=== PATIENT | female | born 1950 | race Two or more races ===

== ENCOUNTER 2022-08-17 12:11 | Inpatient (IN) | payer BC, OTHER ==
[~2022-08-17] VITALS: Ht 154.9 cm; Wt 72.5 kg
[2022-08-17] MEDS ORDERED: ONDANSETRON ODT 4 MG TAB PO ONE (13:15)
[2022-08-17] MEDS ORDERED: HYDROcodone-ACET 5/325MG TAB PO ONE (13:15)
[2022-08-17 13:25] LABS: Basophils # (auto) 0 10 ^3/uL (0-0.2); Basophils % (auto) 0.9 % (0.0-2.0); Eosinophils # (auto) 0 10 ^3/uL (0-0.8); Eosinophils % (auto) 0.1 % (0.0-7.0); Hemoglobin 12.8 g/dL (12.2-16.2); Lymphocytes # (auto) 0.9 10 ^3/uL (0.4-5.4); Mean Corpuscular Hemoglobin 31.3 pg (28.0-32.0); Mean Corpuscular Hgb Conc. 33.7 g/dL (32.0-36.0); Mean Corpuscular Volume 92.6 fL (80.0-100.0); Monocytes # (auto) 0.1 10 ^3/uL (0-1.3); Neutrophils # (auto) 4.3 10 ^3/uL (1.6-8.6); Red Blood Cells 4.11 10^6/uL (4.0-5.20); Red Cell Distribution Width 14.7 % (11.8-14.3); White Blood Cell 5.4 10^3/uL (4.4-10.8)
[2022-08-17 13:46] LABS: Albumin 3.6 g/dL (3.4-5.0); BUN/Creatinine Ratio 17.9; Calcium 11.4 mg/dL (8.5-10.1); Potassium 3.1 mmol/L (3.5-5.1)
[2022-08-17 13:48] LABS: Bilirubin, Total 0.8 mg/dL (0.2-1.0); Total Protein 7.1 g/dL (6.4-8.2)
[2022-08-17 14:27] LABS: INR 0.99 (0.9-1.15); Partial Thromboplastin Time 21.8 sec (24.6-33.4)
[2022-08-17] MEDS ORDERED: SODIUM CHLORIDE 0.9% 1,000 ML IV ONE (15:00)
[2022-08-17] MEDS ORDERED: POTASSIUM CHL 20 Meq TABLET PO ONE ×2 (15:00→19:30)
[2022-08-17] MEDS ORDERED: MORPHINE SULFATE INJ 2 MG/ml SYRG IV PRN (19:00)
[2022-08-17] MEDS ORDERED: NITROGLYCERIN 0.4 MG SL TAB SL PRN (19:00)
[2022-08-17] MEDS ORDERED: ONDANSETRON HCL 4 MG/2 ML VIAL IV PRN (19:00)
[2022-08-17] MEDS ORDERED: PANTOPRAZOLE 40 MG/10 ML VIAL INJ IV ONE (19:00)
[2022-08-17] MEDS ORDERED: methylPREDNISolone SOD SUCC 125 MG/2 ML VL IV ONE (19:30)
[2022-08-17] MEDS: SODIUM CHLORIDE 0.9% 1,000 ML IV SCH (21:01)
[2022-08-17 21:32] LABS: Cholesterol 232 mg/dL (< 200)
[2022-08-17 21:34] LABS: HDL Cholesterol 76 mg/dL (40-59); LDL Cholesterol 130 mg/dL (< 100); Triglycerides 225 mg/dL (< 150)
[2022-08-18] MEDS: HYDROcodone-ACET 5/325MG TAB PO PRN ×3 (00:24→12:46)
[2022-08-18] MEDS: SODIUM CHLORIDE 0.9% 1,000 ML IV SCH ×2 (01:55→22:25)
[2022-08-18] MEDS ORDERED: PRED10TA PO (02:21)
[2022-08-18] MEDS ORDERED: FOLI1TAB6 PO (02:21)
[2022-08-18] MEDS ORDERED: LEFL20TA PO (02:21)
[2022-08-18] MEDS ORDERED: DICL1GEL50 TD (02:21)
[2022-08-18] MEDS ORDERED: HYDR25TA4 PO (02:21)
[2022-08-18] MEDS ORDERED: LISI-716 PO (02:21)
[2022-08-18] MEDS ORDERED: METO-289 PO (02:21)
[2022-08-18] MEDS ORDERED: CALCTAB49 PO (02:21)
[2022-08-18] MEDS ORDERED: DOCU100T15 PO (02:21)
[2022-08-18] MEDS ORDERED: ALEN70TA74 PO (02:21)
[2022-08-18] MEDS ORDERED: CHOL20007 OR (02:21)
[2022-08-18] MEDS ORDERED: CHOL1CAP59 PO (02:21)
[2022-08-18 03:23] LABS: Urine Bacteria FEW /hpf (None Seen); Urine Blood Negative /uL (Negative); Urine Hyaline Cast FEW /lpf (0 - 2); Urine Mucus FEW (None Seen); Urine Specific Gravity 1.013 (1.001-1.035); Urine WBC 2 /hpf (0 - 5)
[2022-08-18 03:30] VITALS: BP 117/40
[2022-08-18 05:20] VITALS: BP 111/39
[2022-08-18 06:07] LABS: Basophils # (auto) 0 10 ^3/uL (0-0.2); Basophils % (auto) 0.8 % (0.0-2.0); Eosinophils # (auto) 0.1 10 ^3/uL (0-0.8); Eosinophils % (auto) 1.4 % (0.0-7.0); Hematocrit 30.6 % (36.0-46.0); Hemoglobin 10.4 g/dL (12.2-16.2); Lymphocytes # (auto) 1.7 10 ^3/uL (0.4-5.4); Lymphocytes % (auto) 36.5 % (10.0-50.0); Mean Corpuscular Hemoglobin 31.6 pg (28.0-32.0); Mean Corpuscular Hgb Conc. 33.9 g/dL (32.0-36.0); Mean Corpuscular Volume 93.3 fL (80.0-100.0); Monocytes # (auto) 0.2 10 ^3/uL (0-1.3); Monocytes % (auto) 4.9 % (0.0-12.0); Neutrophils # (auto) 2.6 10 ^3/uL (1.6-8.6); Neutrophils % (auto) 56.4 % (37.0-80.0); Red Blood Cells 3.27 10^6/uL (4.0-5.20); Red Cell Distribution Width 14.3 % (11.8-14.3); White Blood Cell 4.5 10^3/uL (4.4-10.8)
[2022-08-18 06:19] LABS: Albumin 2.9 g/dL (3.4-5.0); Calcium 9.7 mg/dL (8.5-10.1)
[2022-08-18 06:23] LABS: BUN/Creatinine Ratio 20.4; Bilirubin, Total 0.6 mg/dL (0.2-1.0); Total Protein 5.3 g/dL (6.4-8.2)
[2022-08-18 07:45] VITALS: BP 113/47
[2022-08-18 09:53] VITALS: BP 113/47
[2022-08-18] MEDS ORDERED: ENOXAPARIN SOD 30 MG/0.3 ML SYRINGE SC SCH (10:00)
[2022-08-18] MEDS: PANTOPRAZOLE 40 MG/10 ML VIAL INJ IV SCH (10:12)
[2022-08-18] MEDS: FOLIC ACID 1 MG TAB PO SCH (12:55)
[2022-08-18 16:49] VITALS: BP 114/45
[2022-08-18 22:00] VITALS: BP 126/50
[2022-08-18] MEDS ORDERED: ATORVASTATIN 20 MG TAB PO SCH (22:00)
[2022-08-18] MEDS: CALCIUM CARB 500 MG CHEW TAB PO SCH (22:26)
[2022-08-19] MEDS: SODIUM CHLORIDE 0.9% 1,000 ML IV SCH (04:26)
[2022-08-19 05:00] VITALS: BP 127/53
[2022-08-19 05:35] LABS: Alanine Aminotransferase 38 U/L (13-56); Albumin 2.7 g/dL (3.4-5.0); Anion Gap 8 (5-15); Bilirubin, Direct < 0.1 mg/dL (0-0.2); Blood Urea Nitrogen 31 mg/dL (7-18); Calcium 8.6 mg/dL (8.5-10.1); Carbon Dioxide 24 mmol/L (21-32); Chloride 107 mmol/L (98-107); Glucose 94 mg/dL (74-106); Potassium 3.6 mmol/L (3.5-5.1); Sodium 139 mmol/L (136-145)
[2022-08-19 05:38] LABS: Alkaline Phosphatase 71 U/L (45-117); Aspartate Aminotransferase 32 U/L (15-37); BUN/Creatinine Ratio 21.8; Bilirubin, Total 0.2 mg/dL (0.2-1.0); GFR African American 47 mL/min; GFR Non-African American 39 mL/min; Total Protein 4.9 g/dL (6.4-8.2)
[2022-08-19] MEDS: LEFLUNOMIDE 20 MG TABLET PO SCH ×2 (06:00→14:02)
[2022-08-19 09:00] VITALS: BP 125/60
[2022-08-19] MEDS: HYDROcodone-ACET 5/325MG TAB PO PRN (09:17)
[2022-08-19] MEDS: FOLIC ACID 1 MG TAB PO SCH (09:18)
[2022-08-19] MEDS: CALCIUM CARB 500 MG CHEW TAB PO SCH (09:18)
[2022-08-19] MEDS: PANTOPRAZOLE 40 MG/10 ML VIAL INJ IV SCH (09:23)
[2022-08-19] MEDS ORDERED: METOPROLOL SUCCINATE XL 50 MG TAB PO SCH (10:00)
[2022-08-19] MEDS ORDERED: predniSONE 5 MG TAB PO SCH (10:00)
[2022-08-19] MEDS ORDERED: CHOLECALCIFEROL (VITD3) 2,000 UNIT CAP/TAB PO SCH (10:00)
[2022-08-19] MEDS ORDERED: PATIENTS OWN MEDICATION PO SCH (10:00)
[2022-08-19 13:00] VITALS: BP 148/61
[2022-08-19 16:58] VITALS: BP 138/65
[2022-08-19 17:00] VITALS: BP 137/69
[2022-08-22] MEDS ORDERED: ALENDRONATE SODIUM 10 MG TAB PO SCH (06:00)
== END 2022-08-19 18:35 | disposition home health service (06) | DRG 309 ==
LOC: ER 12:11 → TELE 19:02 → TELE-WESTW 23:46
PROVIDERS: ADMIT Nurse Practitioner Family; ATTEND Internal Medicine
DX: R00.2 Palpitations (principal); E87.1 Hypo-osmolality and hyponatremia; R73.9 Hyperglycemia, unspecified; M06.9 Rheumatoid arthritis, unspecified; G62.9 Polyneuropathy, unspecified; R20.2 Paresthesia of skin; R51.9 Headache, unspecified; E87.6 Hypokalemia; E83.52 Hypercalcemia; E78.5 Hyperlipidemia, unspecified; Z20.822 Contact with and (suspected) exposure to COVID-19; I12.9 Hypertensive chronic kidney disease with stage 1 through stage 4 chronic kidney disease, or unspecified chronic kidney disease; K76.0 Fatty (change of) liver, not elsewhere classified; M35.3 Polymyalgia rheumatica; M81.0 Age-related osteoporosis without current pathological fracture; N18.31 Chronic kidney disease, stage 3a; M54.2 Cervicalgia; R16.0 Hepatomegaly, not elsewhere classified; Z88.7 Allergy status to serum and vaccine
CPT/HCPCS: 36415; 70450; 70551; 71045; 72141; 76705; 80048; 80053; 80061; 80076; 81001; 83036; 84484; 85025; 85379; 85610; 85652; 85730; 86141; 87426; 93005; 93306; 93886; 93970; 96374; C9113; G0378; J2405; Q0162

== ENCOUNTER 2022-10-16 12:29 | Emergency (ER) | payer BC ==
[~2022-10-16 12:29] MED LIST: CALCTAB49 PO; CHOL20007 OR; DOCU100T15 PO; FOLI1TAB6 PO; LEFL20TA PO; METO-289 PO; PRED10TA PO
[2022-10-16] MEDS ORDERED: LABETALOL HCL 5 MG/ML 4ML SYRINGE IV ONE (13:15)
[2022-10-16] MEDS ORDERED: METO1TAB9 PO (15:45)
[2022-10-16 15:58] VITALS: BP 169/91
== END 2022-10-16 15:59 | disposition home or self-care (01) ==
LOC: ER 12:29
DX: I10 Essential (primary) hypertension (principal); Z79.899 Other long term (current) drug therapy; Z88.7 Allergy status to serum and vaccine; Z88.8 Allergy status to other drugs, medicaments and biological substances
CPT/HCPCS: 93005; 96374; 99285; J3490

== ENCOUNTER 2022-10-30 10:19 | Emergency (ER) | payer BC ==
[~2022-10-30] VITALS: Ht 157.5 cm; Wt 61.9 kg
[~2022-10-30 10:19] MED LIST changes: +METO1TAB9 PO
[2022-10-30 11:54] VITALS: BP 96/69
[2022-10-30] MEDS ORDERED: ACETAMINOPHEN 500 MG TAB PO ONE (12:15)
[2022-10-30] MEDS ORDERED: ACET-1158 PO (12:18)
[2022-10-30] MEDS ORDERED: ONDA-144 PO (12:18)
[2022-10-30] MEDS ORDERED: DICY10CA PO (12:18)
== END 2022-10-30 12:31 | disposition home or self-care (01) ==
LOC: ER 10:19
DX: U07.1 COVID-19 (principal); I10 Essential (primary) hypertension; Z88.6 Allergy status to analgesic agent
CPT/HCPCS: 36415; 87426; 87804

== ENCOUNTER 2022-11-05 12:35 | Inpatient (IN) | payer BC ==
[~2022-11-05] VITALS: Ht 157.5 cm; Wt 65.8 kg
[~2022-11-05 12:35] MED LIST changes: +ACET-1158 PO; +DICY10CA PO; +ONDA-144 PO
[2022-11-05] MEDS ORDERED: AZITHROMYCIN 500MG/ 250ML 250 ML IV ONE (13:00)
[2022-11-05] MEDS ORDERED: methylPREDNISolone SOD SUCC 125 MG/2 ML VL IV ONE (13:00)
[2022-11-05] MEDS ORDERED: ONDANSETRON HCL 4 MG/2 ML VIAL IV ONE (13:00)
[2022-11-05 13:55] LABS: Albumin 3.1 g/dL (3.4-5.0); Calcium 9.2 mg/dL (8.5-10.1); Potassium 3.7 mmol/L (3.5-5.1)
[2022-11-05 13:58] LABS: BUN/Creatinine Ratio 22.1; Bilirubin, Total 0.6 mg/dL (0.2-1.0); Total Protein 7.8 g/dL (6.4-8.2)
[2022-11-05 14:06] LABS: Basophils # (auto) 0 10 ^3/uL (0-0.2); Basophils % (auto) 0.5 % (0.0-2.0); Eosinophils # (auto) 0 10 ^3/uL (0-0.8); Eosinophils % (auto) 0.5 % (0.0-7.0); Hematocrit 41.6 % (36.0-46.0); Hemoglobin 14.4 g/dL (12.2-16.2); Lymphocytes # (auto) 0.5 10 ^3/uL (0.4-5.4); Lymphocytes % (auto) 7.9 % (10.0-50.0); Mean Corpuscular Hemoglobin 31.3 pg (28.0-32.0); Mean Corpuscular Hgb Conc. 34.6 g/dL (32.0-36.0); Mean Corpuscular Volume 90.3 fL (80.0-100.0); Monocytes # (auto) 0.2 10 ^3/uL (0-1.3); Monocytes % (auto) 2.9 % (0.0-12.0); Neutrophils # (auto) 5.3 10 ^3/uL (1.6-8.6); Neutrophils % (auto) 88.2 % (37.0-80.0); Nucleated Red Blood Cells % 0.3 %; Red Cell Distribution Width 13.2 % (11.8-14.3); White Blood Cell 6.1 10^3/uL (4.4-10.8)
[2022-11-05 14:51] LABS: Urine Bacteria FEW /hpf (None Seen); Urine Blood Negative /uL (Negative); Urine Specific Gravity 1.018 (1.001-1.035); Urine WBC 2 /hpf (0 - 5)
[2022-11-05] MEDS ORDERED: ALBUTEROL SULF 2.5 MG/0.5ML(0.5%) NEB SOLN NEB PRN (18:30)
[2022-11-05] MEDS ORDERED: cefTRIAXone 1GM/50ML D5W 50 ML IV ONE (18:45)
[2022-11-05] MEDS ORDERED: PANTOPRAZOLE 40 MG/10 ML VIAL INJ IV ONE (19:00)
[2022-11-05] MEDS: CALCIUM CARBONATE 600 MG PO SCH (22:00)
[2022-11-05] MEDS: DICYCLOMINE HCL 10 MG CAP PO SCH (22:11)
[2022-11-05] MEDS: ASCORBIC ACID 500 MG TAB PO SCH (22:11)
[2022-11-05] MEDS: ACETAMINOPHEN 325 MG TAB PO PRN (22:12)
[2022-11-05] MEDS: SODIUM CHLORIDE 0.9% 1,000 ML IV SCH (23:16)
[2022-11-05] MEDS: methylPREDNISolone SOD SUCC 125 MG/2 ML VL IV SCH (23:17)
[2022-11-06] MEDS ORDERED: ALBUTEROL SULF 2.5 MG/0.5ML(0.5%) NEB SOLN NEB SCH
[2022-11-06] MEDS ORDERED: IPRATROPIUM BROM 0.5 MG/2.5ML INH SOL NEB SCH
[2022-11-06] MEDS ORDERED: IBUPROFEN 600 MG TAB PO ONE ×2 (00:30→06:15)
[2022-11-06 04:54] VITALS: BP 122/81
[2022-11-06] MEDS ORDERED: ALBUTEROL MEDNEB 2.5 mg/3ml NEB ONE ×3 (05:40→17:58)
[2022-11-06] MEDS: DICYCLOMINE HCL 10 MG CAP PO SCH ×2 (06:00→14:18)
[2022-11-06] MEDS: IPRATROPIUM BROM 0.5 MG/2.5ML INH SOL NEB SCH ×3 (06:33→20:27)
[2022-11-06] MEDS: ALBUTEROL SULF 2.5 MG/0.5ML(0.5%) NEB SOLN NEB SCH ×3 (06:34→20:27)
[2022-11-06 07:00] LABS: Basophils # (auto) 0 10 ^3/uL (0-0.2); Basophils % (auto) 0.7 % (0.0-2.0); Eosinophils # (auto) 0 10 ^3/uL (0-0.8); Hematocrit 36.4 % (36.0-46.0); Hemoglobin 12.8 g/dL (12.2-16.2); Lymphocytes # (auto) 0.3 10 ^3/uL (0.4-5.4); Lymphocytes % (auto) 11.8 % (10.0-50.0); Mean Corpuscular Hemoglobin 31.5 pg (28.0-32.0); Mean Corpuscular Hgb Conc. 35.2 g/dL (32.0-36.0); Mean Corpuscular Volume 89.5 fL (80.0-100.0); Monocytes # (auto) 0.1 10 ^3/uL (0-1.3); Monocytes % (auto) 3.1 % (0.0-12.0); Neutrophils # (auto) 2.1 10 ^3/uL (1.6-8.6); Neutrophils % (auto) 84.4 % (37.0-80.0); Nucleated Red Blood Cells % 0.2 %; Red Blood Cells 4.06 10^6/uL (4.0-5.20); Red Cell Distribution Width 13.1 % (11.8-14.3); White Blood Cell 2.5 10^3/uL (4.4-10.8)
[2022-11-06 07:03] LABS: Albumin 2.7 g/dL (3.4-5.0); BUN/Creatinine Ratio 23.5; Calcium 8.5 mg/dL (8.5-10.1); Potassium 3.6 mmol/L (3.5-5.1)
[2022-11-06 07:05] LABS: Bilirubin, Total 0.5 mg/dL (0.2-1.0); Total Protein 6.3 g/dL (6.4-8.2)
[2022-11-06] MEDS: cefTRIAXone 1GM/50ML D5W 50 ML IV SCH (09:20)
[2022-11-06] MEDS: SODIUM CHLORIDE 0.9% 1,000 ML IV SCH (09:20)
[2022-11-06] MEDS: ACETAMINOPHEN 325 MG TAB PO PRN ×2 (09:32→17:59)
[2022-11-06] MEDS: FOLIC ACID 1 MG TAB PO SCH (09:58)
[2022-11-06] MEDS: methylPREDNISolone SOD SUCC 125 MG/2 ML VL IV SCH ×2 (09:58→21:22)
[2022-11-06] MEDS: ENOXAPARIN SOD 30 MG/0.3 ML SYRINGE SC SCH (09:59)
[2022-11-06] MEDS ORDERED: PANTOPRAZOLE 40 MG/10 ML VIAL INJ IV SCH (10:00)
[2022-11-06] MEDS ORDERED: ZINC SULFATE 220mg CAP or TAB PO SCH (10:00)
[2022-11-06] MEDS: ASCORBIC ACID 500 MG TAB PO SCH (10:02)
[2022-11-06] MEDS: METOPROLOL SUCCINATE XL 50 MG TAB PO SCH (10:30)
[2022-11-06] MEDS: AZITHROMYCIN 500MG/ 250ML 250 ML IV SCH (10:32)
[2022-11-06] MEDS ORDERED: METOPROLOL TARTRATE 25 MG TAB ONE (10:53)
[2022-11-06] MEDS: MULTIPLE VITAMIN TAB PO SCH (11:00)
[2022-11-06] MEDS: CALCIUM CARBONATE 600 MG PO SCH (12:00)
[2022-11-06] MEDS ORDERED: FUROSEMIDE 40 MG/4 ML VIAL IV ONE (16:15)
[2022-11-06 17:35] VITALS: BP 149/88
[2022-11-06 22:00] VITALS: BP 144/83
[2022-11-07 05:00] VITALS: BP 126/68
[2022-11-07] MEDS: ACETAMINOPHEN 325 MG TAB PO PRN ×2 (05:15→17:34)
[2022-11-07] MEDS ORDERED: ALBUTEROL MEDNEB 2.5 mg/3ml NEB ONE ×2 (05:43→18:54)
[2022-11-07 05:54] LABS: Basophils # (auto) 0 10 ^3/uL (0-0.2); Basophils % (auto) 0.1 % (0.0-2.0); Eosinophils # (auto) 0 10 ^3/uL (0-0.8); Hematocrit 35.8 % (36.0-46.0); Hemoglobin 12.5 g/dL (12.2-16.2); Lymphocytes # (auto) 0.4 10 ^3/uL (0.4-5.4); Lymphocytes % (auto) 3.9 % (10.0-50.0); Mean Corpuscular Hemoglobin 31.4 pg (28.0-32.0); Mean Corpuscular Volume 89.5 fL (80.0-100.0); Monocytes # (auto) 0.5 10 ^3/uL (0-1.3); Neutrophils # (auto) 8.7 10 ^3/uL (1.6-8.6); Red Cell Distribution Width 13.1 % (11.8-14.3); White Blood Cell 9.6 10^3/uL (4.4-10.8)
[2022-11-07 06:12] LABS: Calcium 7.9 mg/dL (8.5-10.1)
[2022-11-07 06:17] LABS: BUN/Creatinine Ratio 27.4
[2022-11-07 06:34] LABS: Potassium 2.9 mmol/L (3.5-5.1)
[2022-11-07] MEDS: IPRATROPIUM BROM 0.5 MG/2.5ML INH SOL NEB SCH ×3 (06:51→19:29)
[2022-11-07] MEDS: ALBUTEROL SULF 2.5 MG/0.5ML(0.5%) NEB SOLN NEB SCH ×3 (06:52→18:00)
[2022-11-07] MEDS: POTASSIUM CHL 20MEQ/100ML 100 ML IV SCH ×2 (08:12→13:18)
[2022-11-07 09:00] VITALS: BP 102/52
[2022-11-07] MEDS ORDERED: ROSU5TAB5 PO (09:46)
[2022-11-07] MEDS: cefTRIAXone 1GM/50ML D5W 50 ML IV SCH (09:50)
[2022-11-07] MEDS: methylPREDNISolone SOD SUCC 125 MG/2 ML VL IV SCH ×2 (09:51→21:44)
[2022-11-07] MEDS: MULTIPLE VITAMIN TAB PO SCH (09:51)
[2022-11-07] MEDS: FOLIC ACID 1 MG TAB PO SCH (09:51)
[2022-11-07] MEDS: METOPROLOL SUCCINATE XL 50 MG TAB PO SCH (09:52)
[2022-11-07] MEDS: ENOXAPARIN SOD 30 MG/0.3 ML SYRINGE SC SCH (09:52)
[2022-11-07] MEDS ORDERED: FUROSEMIDE 40 MG/4 ML VIAL IV SCH (10:00)
[2022-11-07] MEDS: AZITHROMYCIN 500MG/ 250ML 250 ML IV SCH (11:20)
[2022-11-07 13:28] VITALS: BP 123/54
[2022-11-07] MEDS ORDERED: POTASSIUM EFFERVESENT TAB 25 MEQ PO ONE (14:30)
[2022-11-07 16:40] VITALS: BP 153/76
[2022-11-07] MEDS: POTASSIUM EFFERVESENT TAB 25 MEQ PO SCH (21:44)
[2022-11-07] MEDS: TEMAZEPAM 15 MG CAP PO SCH (21:45)
[2022-11-07 22:00] VITALS: BP 112/50
[2022-11-08 05:00] VITALS: BP 125/64
[2022-11-08] MEDS ORDERED: ALBUTEROL MEDNEB 2.5 mg/3ml NEB ONE ×3 (05:52→18:10)
[2022-11-08] MEDS: SUMAtriptan SUCCINATE 25 MG TAB PO PRN (06:29)
[2022-11-08 06:49] LABS: Calcium 7.8 mg/dL (8.5-10.1); Potassium 4.4 mmol/L (3.5-5.1)
[2022-11-08 06:51] LABS: BUN/Creatinine Ratio 30.2
[2022-11-08] MEDS: ALBUTEROL SULF 2.5 MG/0.5ML(0.5%) NEB SOLN NEB SCH ×3 (07:12→19:41)
[2022-11-08] MEDS: IPRATROPIUM BROM 0.5 MG/2.5ML INH SOL NEB SCH ×3 (07:12→19:40)
[2022-11-08 08:00] VITALS: BP 129/53
[2022-11-08 09:00] VITALS: BP 113/49
[2022-11-08] MEDS: ENOXAPARIN SOD 30 MG/0.3 ML SYRINGE SC SCH (09:44)
[2022-11-08] MEDS: MULTIPLE VITAMIN TAB PO SCH (09:44)
[2022-11-08] MEDS: FOLIC ACID 1 MG TAB PO SCH (09:44)
[2022-11-08] MEDS: cefTRIAXone 1GM/50ML D5W 50 ML IV SCH (09:44)
[2022-11-08] MEDS: METOPROLOL SUCCINATE XL 50 MG TAB PO SCH (09:46)
[2022-11-08] MEDS: methylPREDNISolone SOD SUCC 125 MG/2 ML VL IV SCH ×2 (09:46→22:42)
[2022-11-08] MEDS: FUROSEMIDE 20 MG/2 ML VIAL IV SCH (09:47)
[2022-11-08] MEDS: AZITHROMYCIN 500MG/ 250ML 250 ML IV SCH (10:50)
[2022-11-08] MEDS: POTASSIUM EFFERVESENT TAB 25 MEQ PO SCH (10:51)
[2022-11-08] MEDS: ACETAMINOPHEN 325 MG TAB PO PRN ×2 (12:20→18:43)
[2022-11-08 17:00] VITALS: BP 129/67
[2022-11-08] MEDS: TEMAZEPAM 15 MG CAP PO SCH (18:43)
[2022-11-08 21:53] VITALS: BP 102/43
[2022-11-08 23:27] VITALS: BP 102/43
[2022-11-09] MEDS: ACETAMINOPHEN 325 MG TAB PO PRN ×3 (03:02→17:57)
[2022-11-09 05:00] VITALS: BP 123/53
[2022-11-09] MEDS ORDERED: ALBUTEROL MEDNEB 2.5 mg/3ml NEB ONE (05:42)
[2022-11-09] MEDS: IPRATROPIUM BROM 0.5 MG/2.5ML INH SOL NEB SCH ×3 (06:49→18:58)
[2022-11-09] MEDS: ALBUTEROL SULF 2.5 MG/0.5ML(0.5%) NEB SOLN NEB SCH (06:49)
[2022-11-09] MEDS ORDERED: ALBUTEROL MEDNEB 2.5 mg/3ml NEB NEB PRN (08:15)
[2022-11-09 09:00] VITALS: BP 124/58
[2022-11-09] MEDS: AZITHROMYCIN 500MG/ 250ML 250 ML IV SCH (09:37)
[2022-11-09] MEDS: cefTRIAXone 1GM/50ML D5W 50 ML IV SCH (09:37)
[2022-11-09] MEDS: methylPREDNISolone SOD SUCC 125 MG/2 ML VL IV SCH ×2 (09:37→21:50)
[2022-11-09] MEDS: MULTIPLE VITAMIN TAB PO SCH (09:38)
[2022-11-09] MEDS: METOPROLOL SUCCINATE XL 50 MG TAB PO SCH (09:38)
[2022-11-09] MEDS: ENOXAPARIN SOD 30 MG/0.3 ML SYRINGE SC SCH (09:38)
[2022-11-09] MEDS: FUROSEMIDE 20 MG/2 ML VIAL IV SCH (09:38)
[2022-11-09] MEDS: FOLIC ACID 1 MG TAB PO SCH (09:38)
[2022-11-09] MEDS: ALBUTEROL MEDNEB 2.5 mg/3ml NEB NEB SCH ×2 (12:00→18:58)
[2022-11-09 13:00] VITALS: BP 141/73
[2022-11-09 16:54] VITALS: BP 141/78
[2022-11-09] MEDS: TEMAZEPAM 15 MG CAP PO SCH (17:56)
[2022-11-09] MEDS: SUMAtriptan SUCCINATE 25 MG TAB PO PRN (21:51)
[2022-11-09 22:00] VITALS: BP 128/79
[2022-11-10 05:00] VITALS: BP 136/71
[2022-11-10] MEDS: SUMAtriptan SUCCINATE 25 MG TAB PO PRN (05:49)
[2022-11-10] MEDS: ALBUTEROL MEDNEB 2.5 mg/3ml NEB NEB SCH ×3 (06:39→19:40)
[2022-11-10] MEDS: IPRATROPIUM BROM 0.5 MG/2.5ML INH SOL NEB SCH ×3 (06:39→19:40)
[2022-11-10 08:30] VITALS: BP_SYST 139; BP_DIAS 65; BP_DIAS 68
[2022-11-10] MEDS: cefTRIAXone 1GM/50ML D5W 50 ML IV SCH (09:38)
[2022-11-10] MEDS: methylPREDNISolone SOD SUCC 125 MG/2 ML VL IV SCH (09:40)
[2022-11-10] MEDS: ENOXAPARIN SOD 30 MG/0.3 ML SYRINGE SC SCH (09:40)
[2022-11-10] MEDS: FUROSEMIDE 20 MG/2 ML VIAL IV SCH (09:42)
[2022-11-10] MEDS: MULTIPLE VITAMIN TAB PO SCH (09:44)
[2022-11-10] MEDS: FOLIC ACID 1 MG TAB PO SCH (09:44)
[2022-11-10] MEDS: METOPROLOL SUCCINATE XL 50 MG TAB PO SCH (09:45)
[2022-11-10] MEDS: AZITHROMYCIN 500MG/ 250ML 250 ML IV SCH (10:40)
[2022-11-10 12:30] VITALS: BP 139/64
[2022-11-10] MEDS ORDERED: ALBUTEROL SULF 2.5 MG/0.5ML(0.5%) NEB SOLN ONE (12:46)
[2022-11-10] MEDS: ACETAMINOPHEN 325 MG TAB PO PRN (15:49)
[2022-11-10 16:38] VITALS: BP 140/64
[2022-11-10] MEDS: TEMAZEPAM 15 MG CAP PO SCH (18:00)
[2022-11-10 18:56] VITALS: BP 139/68
== END 2022-11-10 19:30 | disposition home or self-care (01) | DRG 189 ==
LOC: ER 12:39 → OVERFLOW 18:41 → EAST 11-06 17:36
PROVIDERS: ADMIT Nurse Practitioner Family; ATTEND Hospitalist
DX: J96.01 Acute respiratory failure with hypoxia (principal); E87.1 Hypo-osmolality and hyponatremia; J81.1 Chronic pulmonary edema; N17.9 Acute kidney failure, unspecified; R51.9 Headache, unspecified; E78.5 Hyperlipidemia, unspecified; E87.8 Other disorders of electrolyte and fluid balance, not elsewhere classified; I12.9 Hypertensive chronic kidney disease with stage 1 through stage 4 chronic kidney disease, or unspecified chronic kidney disease; M06.9 Rheumatoid arthritis, unspecified; N18.32 Chronic kidney disease, stage 3b; Z20.822 Contact with and (suspected) exposure to COVID-19; Z87.891 Personal history of nicotine dependence; Z90.710 Acquired absence of both cervix and uterus; R74.01 Elevation of levels of liver transaminase levels; Z88.8 Allergy status to other drugs, medicaments and biological substances; Z88.7 Allergy status to serum and vaccine
CPT/HCPCS: 36415; 70450; 71045; 76775; 78582; 80048; 80053; 81001; 82306; 83880; 84100; 84132; 85025; 85379; 87426; 87804; 93005; 93306; 94640; 97110; 97116; 97163; 97530; C9113; G0378; J0696; J2405; J3480

== ENCOUNTER 2022-11-20 11:01 | Inpatient (IN) | payer BC ==
[~2022-11-20] VITALS: Ht 157.5 cm; Wt 59.7 kg
[~2022-11-20 11:01] MED LIST changes: +ROSU5TAB5 PO
[2022-11-20 13:13] LABS: Basophils # (auto) 0.1 10 ^3/uL (0-0.2); Basophils % (auto) 1.2 % (0.0-2.0); Eosinophils # (auto) 0.5 10 ^3/uL (0-0.8); Eosinophils % (auto) 4.4 % (0.0-7.0); Hematocrit 37.6 % (36.0-46.0); Hemoglobin 12.8 g/dL (12.2-16.2); Lymphocytes # (auto) 0.9 10 ^3/uL (0.4-5.4); Lymphocytes % (auto) 8.7 % (10.0-50.0); Mean Corpuscular Hemoglobin 31.3 pg (28.0-32.0); Mean Corpuscular Hgb Conc. 34.2 g/dL (32.0-36.0); Mean Corpuscular Volume 91.5 fL (80.0-100.0); Monocytes # (auto) 0.6 10 ^3/uL (0-1.3); Monocytes % (auto) 5.9 % (0.0-12.0); Neutrophils # (auto) 8.5 10 ^3/uL (1.6-8.6); Neutrophils % (auto) 79.8 % (37.0-80.0); Nucleated Red Blood Cells % 0.3 %; Red Blood Cells 4.11 10^6/uL (4.0-5.20); Red Cell Distribution Width 13.1 % (11.8-14.3); White Blood Cell 10.7 10^3/uL (4.4-10.8)
[2022-11-20 13:14] LABS: Potassium 3.1 mmol/L (3.5-5.1)
[2022-11-20 13:19] LABS: Albumin 2.9 g/dL (3.4-5.0); BUN/Creatinine Ratio 29.6; Calcium 10.9 mg/dL (8.5-10.1)
[2022-11-20 13:21] LABS: Bilirubin, Total 0.5 mg/dL (0.2-1.0); Total Protein 6.5 g/dL (6.4-8.2)
[2022-11-20] MEDS ORDERED: NITROGLYCERIN 0.4 MG SL TAB SL PRN (21:15)
[2022-11-20] MEDS ORDERED: ONDANSETRON HCL 4 MG/2 ML VIAL IV PRN (21:15)
[2022-11-20] MEDS ORDERED: ACETAMINOPHEN 325 MG TAB PO PRN (21:15)
[2022-11-20] MEDS ORDERED: POTASSIUM CHL 20 Meq TABLET PO ONE (21:15)
[2022-11-20] MEDS ORDERED: MORPHINE SULFATE INJ 2 MG/ml SYRG IV PRN (21:15)
[2022-11-20] MEDS: ATORVASTATIN 20 MG TAB PO SCH (22:44)
[2022-11-20] MEDS: HYDROcodone-ACET 5/325MG TAB PO PRN (23:37)
[2022-11-21] MEDS: HYDROcodone-ACET 5/325MG TAB PO PRN ×2 (05:19→19:54)
[2022-11-21 06:37] LABS: Basophils # (auto) 0.1 10 ^3/uL (0-0.2); Basophils % (auto) 0.8 % (0.0-2.0); Eosinophils # (auto) 0.2 10 ^3/uL (0-0.8); Eosinophils % (auto) 2.3 % (0.0-7.0); Hemoglobin 11.9 g/dL (12.2-16.2); Lymphocytes # (auto) 0.9 10 ^3/uL (0.4-5.4); Mean Corpuscular Hemoglobin 30.2 pg (28.0-32.0); Mean Corpuscular Hgb Conc. 32.1 g/dL (32.0-36.0); Mean Corpuscular Volume 94.1 fL (80.0-100.0); Monocytes # (auto) 0.7 10 ^3/uL (0-1.3); Monocytes % (auto) 8.5 % (0.0-12.0); Neutrophils # (auto) 6.4 10 ^3/uL (1.6-8.6); Neutrophils % (auto) 77.4 % (37.0-80.0); Red Blood Cells 3.93 10^6/uL (4.0-5.20); White Blood Cell 8.2 10^3/uL (4.4-10.8)
[2022-11-21 06:55] LABS: Chloride 93 mmol/L (98-107); Potassium 4.4 mmol/L (3.5-5.1); Sodium 129 mmol/L (136-145)
[2022-11-21 07:03] LABS: Anion Gap 13 (5-15); BUN/Creatinine Ratio 28.2; Blood Urea Nitrogen 66 mg/dL (7-18); Calcium 10.6 mg/dL (8.5-10.1); Carbon Dioxide 23 mmol/L (21-32); GFR African American 26 mL/min; GFR Non-African American 22 mL/min; Glucose 69 mg/dL (74-106)
[2022-11-21] MEDS ORDERED: PANTOPRAZOLE 40 MG TAB PO SCH (10:00)
[2022-11-21] MEDS: LISINOPRIL 10 MG TAB PO SCH (11:00)
[2022-11-21] MEDS: ASPirin 81 mg TAB PO SCH (11:00)
[2022-11-21] MEDS: METOPROLOL SUCCINATE XL 50 MG TAB PO SCH (11:00)
[2022-11-21] MEDS ORDERED: SODIUM CHLORIDE 0.9% 1,000 ML IV ONE ×2 (18:45)
[2022-11-21] MEDS: SODIUM CHLORIDE 0.9% 1,000 ML IV SCH (19:00)
[2022-11-21] MEDS: TEMAZEPAM 15 MG CAP PO PRN (22:53)
[2022-11-21] MEDS: ATORVASTATIN 20 MG TAB PO SCH (22:53)
[2022-11-21 22:54] VITALS: BP 104/60
[2022-11-21 23:42] VITALS: BP 119/54
[2022-11-22] MEDS ORDERED: ATOR10TA52 PO (01:05)
[2022-11-22] MEDS ORDERED: HYDR25TA5 PO (01:05)
[2022-11-22] MEDS ORDERED: LISI-716 PO (01:05)
[2022-11-22 04:47] VITALS: BP 136/75
[2022-11-22] MEDS: SODIUM CHLORIDE 0.9% 1,000 ML IV SCH ×2 (05:57→15:00)
[2022-11-22 08:30] VITALS: BP 125/65
[2022-11-22] MEDS: ASPirin 81 mg TAB PO SCH (09:11)
[2022-11-22] MEDS: METOPROLOL SUCCINATE XL 50 MG TAB PO SCH (09:12)
[2022-11-22] MEDS: HYDROcodone-ACET 5/325MG TAB PO PRN ×2 (09:13→20:23)
[2022-11-22] MEDS: LISINOPRIL 10 MG TAB PO SCH (09:13)
[2022-11-22 11:31] LABS: BUN/Creatinine Ratio 32.1; Calcium 9.2 mg/dL (8.5-10.1); Potassium 3.6 mmol/L (3.5-5.1)
[2022-11-22 13:00] VITALS: BP 125/65
[2022-11-22] MEDS ORDERED: METO-6 PO (16:43)
[2022-11-22 17:00] VITALS: BP 98/53
[2022-11-22 22:00] VITALS: BP 102/47
[2022-11-22] MEDS: TEMAZEPAM 15 MG CAP PO PRN (22:50)
[2022-11-22] MEDS: ATORVASTATIN 20 MG TAB PO SCH (22:50)
[2022-11-23] MEDS: SODIUM CHLORIDE 0.9% 1,000 ML IV SCH (01:00)
[2022-11-23 05:00] VITALS: BP 116/52
[2022-11-23 09:00] VITALS: BP 120/56
[2022-11-23] MEDS: LISINOPRIL 10 MG TAB PO SCH (09:18)
[2022-11-23] MEDS: ASPirin 81 mg TAB PO SCH (09:18)
[2022-11-23] MEDS: METOPROLOL SUCCINATE XL 50 MG TAB PO SCH (09:19)
[2022-11-23 10:18] VITALS: BP 116/52
== END 2022-11-23 11:33 | disposition home health service (06) | DRG 312 ==
LOC: ER 11:01 → TELE 21:15 → TELE-WESTW 11-21 21:14
PROVIDERS: ADMIT Nurse Practitioner; ATTEND Internal Medicine
DX: R55 Syncope and collapse (principal); E87.1 Hypo-osmolality and hyponatremia; I95.9 Hypotension, unspecified; E87.6 Hypokalemia; Z68.24 Body mass index [BMI] 24.0-24.9, adult; E78.5 Hyperlipidemia, unspecified; I12.9 Hypertensive chronic kidney disease with stage 1 through stage 4 chronic kidney disease, or unspecified chronic kidney disease; Z20.822 Contact with and (suspected) exposure to COVID-19; M06.9 Rheumatoid arthritis, unspecified; R54 Age-related physical debility; E86.0 Dehydration; N18.30 Chronic kidney disease, stage 3 unspecified; Z90.710 Acquired absence of both cervix and uterus; Z91.81 History of falling; Z88.7 Allergy status to serum and vaccine
CPT/HCPCS: 36415; 70450; 70551; 71250; 72125; 80048; 80053; 84484; 85025; 87426; 93005; 93886; 95819; 97163; G0378

== ENCOUNTER 2024-04-20 18:24 | Emergency (ER) | payer BC ==
[~2024-04-20] VITALS: Ht 154.9 cm; Wt 54.0 kg
[~2024-04-20 18:24] MED LIST changes: -ACET-1158 PO; +ACET500T58 PO; +ATOR10TA52 PO; -CALCTAB49 PO; -CHOL20007 OR; +FOLI-119 PO; -FOLI1TAB6 PO; +LISI10TA34 PO; -METO-289 PO; +METO-6 PO; -METO1TAB9 PO; -ONDA-144 PO; -PRED10TA PO
[2024-04-20 18:37] VITALS: BP 144/90; RESP 20
[2024-04-20 18:43] VITALS: PULSE 103
[2024-04-20 19:16] LABS: Hemoglobin 9.9 g/dL (12.2-16.2)
[2024-04-20 19:18] LABS: Hematocrit 30.9 % (36.0-46.0); Mean Corpuscular Hemoglobin 33.2 pg (28.0-32.0); Mean Corpuscular Hgb Conc. 32.1 g/dL (32.0-36.0); Mean Corpuscular Volume 103.3 fL (80.0-100.0); Red Blood Cells 2.99 10^6/uL (4.0-5.20); Red Cell Distribution Width 21.1 % (11.8-14.3); White Blood Cell 7.6 10^3/uL (4.4-10.8)
[2024-04-20 19:29] LABS: Alanine Aminotransferase 16 U/L (7-40); Albumin 4.4 g/dL (3.2-4.8); Alkaline Phosphatase 156 U/L (46-116); Anion Gap 12 (5-15); Aspartate Aminotransferase 46 U/L (13-40); BUN/Creatinine Ratio 23.8 (10.0-20.0); Bilirubin, Total 0.6 mg/dL (0.2-1.0); Blood Urea Nitrogen 34 mg/dL (9-23); Calcium 10.5 mg/dL (8.7-10.4); Carbon Dioxide 19 mmol/L (20-30); Chloride 106 mmol/L (98-107); Glucose 131 mg/dL (74-106); Potassium 3.9 mmol/L (3.5-5.1); Sodium 137 mmol/L (136-145); Total Protein 6.9 g/dL (5.7-8.2)
[2024-04-20 19:53] LABS: Band Neutrophils % (manual) 0; Basophils % (manual) 0 (0.0-2.0); Blast Cells 0; Eosinophils % (manual) 0 (0-7); Myelocytes % 0; Promyelocytes % 0; Reactive Lymphocytes 0
[2024-04-20 20:05] LABS: Urine Bacteria None Seen /hpf (None Seen)
[2024-04-20 20:28] LABS: Urine Blood Negative /uL (Negative); Urine Clarity Clear (Clear); Urine Color Light-Yellow (Yellow); Urine Protein, UAD TRACE (Negative); Urine Specific Gravity 1.018 (1.001-1.035); Urine Urobilinogen Normal (Negative); Urine WBC 1 /hpf (0 - 5)
[2024-04-20 20:38] LABS: Lactic Acid w/Reflex 3.9 mmol/L (0.4-2.0)
[2024-04-20 20:43] LABS: Lymphocytes % (manual) 11 (10.0-50.0); Metamyelocytes % 1; Monocytes % (manual) 7 (0-12)
[2024-04-20 20:44] LABS: Anisocytosis Slight; Large Platelets FEW; Macrocytosis Slight; Platelet Estimate Adequa
[2024-04-20 22:41] VITALS: O2SAT 96
== END 2024-04-20 22:50 | disposition home or self-care (01) ==
LOC: ER 18:24
DX: R50.9 Fever, unspecified (principal); E78.5 Hyperlipidemia, unspecified; I10 Essential (primary) hypertension; Z90.710 Acquired absence of both cervix and uterus
CPT/HCPCS: 36415; 71045; 80053; 81001; 83605; 85007; 85025; 85027; 87040; 93005

== ENCOUNTER 2024-04-29 17:28 | Inpatient (IN) | payer BC ==
[~2024-04-29] VITALS: Ht 157.5 cm; Wt 56.0 kg
[~2024-04-29 17:28] MED LIST changes: +CAPE1TAB11 PO; +POTA-36 PO
[2024-04-29 18:00] VITALS: PULSE 88; RESP 16; O2SAT 97
[2024-04-29 19:20] VITALS: PULSE 92; RESP 22; O2SAT 99
[2024-04-29] MEDS ORDERED: LORazepam 2MG/ML-1ML VIAL IV PRN (19:30)
[2024-04-29] MEDS: SODIUM CHLORIDE 0.9% 1,500 ML IV ONE ×2 (19:59→23:04)
[2024-04-29 20:24] LABS: Hemoglobin 9.4 g/dL (12.2-16.2); Mean Corpuscular Hgb Conc. 33.5 g/dL (32.0-36.0); Mean Corpuscular Volume 101.3 fL (80.0-100.0); Red Blood Cells 2.77 10^6/uL (4.0-5.20); Red Cell Distribution Width 19.6 % (11.8-14.3)
[2024-04-29 20:35] LABS: Partial Thromboplastin Time 22.1 SEC (24.5-34.5); Prothrombin Time 10.6 sec (9.3-11.8)
[2024-04-29 20:37] LABS: Band Neutrophils % (manual) 0; Basophils % (manual) 0 (0.0-2.0); Blast Cells 0; Eosinophils % (manual) 0 (0-7); Metamyelocytes % 0; Myelocytes % 0; Promyelocytes % 0; Reactive Lymphocytes 0
[2024-04-29 20:44] LABS: Alanine Aminotransferase 25 U/L (7-40); Alkaline Phosphatase 167 U/L (46-116); Anion Gap 13 (5-15); Aspartate Aminotransferase 41 U/L (13-40); BUN/Creatinine Ratio 26.3 (10.0-20.0); Blood Urea Nitrogen 25 mg/dL (9-23); Calcium 8.9 mg/dL (8.7-10.4); Carbon Dioxide 17 mmol/L (20-30); Chloride 109 mmol/L (98-107); Glucose 165 mg/dL (74-106); Magnesium 1.6 mg/dL (1.6-2.6); Potassium 3.2 mmol/L (3.5-5.1); Sodium 139 mmol/L (136-145)
[2024-04-29 20:45] LABS: Bilirubin, Total 0.4 mg/dL (0.2-1.0); Total Protein 5.8 g/dL (5.7-8.2)
[2024-04-29 21:16] LABS: Lymphocytes % (manual) 3 (10.0-50.0); Monocytes % (manual) 2 (0-12)
[2024-04-29 21:17] LABS: Macrocytosis Slight; Platelet Estimate Decreased
[2024-04-29] MEDS: CEFEPIME 1GM/ 50ML 50 ML IV SCH (21:46)
[2024-04-29] MEDS ORDERED: VANCOMYCIN 1GM/200ML 200 ML IV SCH (22:00)
[2024-04-29 22:44] LABS: Lactic Acid w/Reflex 2.4 mmol/L (0.4-2.0)
[2024-04-29] MEDS: KETOROLAC TROMETH 30 MG/ML 1ML VIAL IV ONE (23:05)
[2024-04-29] MEDS: ONDANSETRON HCL 4 MG/2 ML VIAL IV ONE (23:06)
[2024-04-30] VITALS (9 sets, daily range): BP systolic 100–165; BP diastolic 70–86; PULSE 70–113; RESP 16–20; TEMP 97.8–98.3; O2SAT 95–99
[2024-04-30] MEDS: IOHEXOL 350 MG/ML 100ML IJ ONE (03:00)
[2024-04-30 03:33] LABS: COVID19 ANTIGEN SOFIA FIA NEGATIVE (NEGATIVE); Rapid Influenza A Negative (Negative); Rapid Influenza B Negative (Negative)
[2024-04-30] MEDS: ACETAMINOPHEN 325 MG TAB PO PRN (03:57)
[2024-04-30] MEDS: VANCOMYCIN 1GM/200ML 200 ML IV ONE (03:58)
[2024-04-30] MEDS ORDERED: cloNIDine HCL 0.1 MG TAB PO PRN (04:00)
[2024-04-30] MEDS ORDERED: DOCUSATE SOD 100 MG CAP PO PRN (04:00)
[2024-04-30] MEDS ORDERED: NITROGLYCERIN 0.4 MG SL TAB SL PRN (04:00)
[2024-04-30] MEDS ORDERED: MORPHINE SULFATE INJ 2 MG/ml SYRG IV PRN (04:00)
[2024-04-30 06:12] LABS: Basophils # (auto) 0 10 ^3/uL (0-0.2); Eosinophils # (auto) 0 10 ^3/uL (0-0.8); Eosinophils % (auto) 0.1 % (0.0-7.0); Hematocrit 28.5 % (36.0-46.0); Hemoglobin 9.5 g/dL (12.2-16.2); Lymphocytes # (auto) 0.2 10 ^3/uL (0.4-5.4); Lymphocytes % (auto) 5.4 % (10.0-50.0); Mean Corpuscular Hemoglobin 33.8 pg (28.0-32.0); Mean Corpuscular Hgb Conc. 33.2 g/dL (32.0-36.0); Mean Corpuscular Volume 101.8 fL (80.0-100.0); Monocytes # (auto) 0.1 10 ^3/uL (0-1.3); Neutrophils % (auto) 91.5 % (37.0-80.0); Red Cell Distribution Width 19.2 % (11.8-14.3); White Blood Cell 4.3 10^3/uL (4.4-10.8)
[2024-04-30] MEDS: hydrALAZINE HCL 20 MG/ML VL IV PRN (06:16)
[2024-04-30 06:23] LABS: Anion Gap 14 (5-15); Carbon Dioxide 18 mmol/L (20-30); Chloride 108 mmol/L (98-107); Potassium 3.2 mmol/L (3.5-5.1); Sodium 140 mmol/L (136-145)
[2024-04-30 06:24] LABS: Calcium 8.8 mg/dL (8.5-10.1)
[2024-04-30 06:29] LABS: BUN/Creatinine Ratio 23.8 (10.0-20.0); Blood Urea Nitrogen 20 mg/dL (9-23); Glucose 114 mg/dL (74-106)
[2024-04-30] MEDS ORDERED: VANCOMYCIN PER PHARMACY 0 MG IV SCH (07:45)
[2024-04-30 09:55] LABS: Urine Bacteria None Seen /hpf (None Seen)
[2024-04-30] MEDS: PANTOPRAZOLE 40 MG/10 ML VIAL INJ IV SCH (10:38)
[2024-04-30] MEDS ORDERED: ALBUTEROL SULF 2.5 MG/0.5ML(0.5%) NEB SOLN NEB PRN (11:00)
[2024-04-30 11:34] LABS: Urine Blood Negative /uL (Negative); Urine Clarity Clear (Clear); Urine Color Light-Yellow (Yellow); Urine Protein, UAD 1+ (Negative); Urine Specific Gravity 1.031 (1.001-1.035); Urine Urobilinogen Normal (Negative); Urine WBC 1 /hpf (0 - 5); Urine pH 5.5 (5.0-9.0)
[2024-04-30] MEDS: METOPROLOL SUCCINATE XL 50 MG TAB PO ONE (13:47)
[2024-04-30] MEDS: VANCOMYCIN 750mg/150ml 150 ML IV SCH (16:52)
[2024-04-30] MEDS: CEFEPIME 2GM/50ML NS 50 ML IV SCH (19:31)
[2024-04-30] MEDS ORDERED: LISINOPRIL 20 MG TAB PO SCH (22:00)
[2024-05-01] VITALS (9 sets, daily range): BP systolic 102–173; BP diastolic 61–88; PULSE 72–93; RESP 16–20; TEMP 98–98.9; O2SAT 98–100
[2024-05-01 06:36] LABS: Basophils # (auto) 0 10 ^3/uL (0-0.2); Basophils % (auto) 0.1 % (0.0-2.0); Eosinophils # (auto) 0 10 ^3/uL (0-0.8); Hemoglobin 8.9 g/dL (12.2-16.2); Lymphocytes # (auto) 0.5 10 ^3/uL (0.4-5.4); Mean Corpuscular Volume 104.8 fL (80.0-100.0); Monocytes # (auto) 0 10 ^3/uL (0-1.3); Red Blood Cells 2.66 10^6/uL (4.0-5.20); Red Cell Distribution Width 19.3 % (11.8-14.3)
[2024-05-01 06:38] LABS: Eosinophils % (auto) 1.5 % (0.0-7.0); Hematocrit 27.9 % (36.0-46.0); Lymphocytes % (auto) 15.8 % (10.0-50.0); Mean Corpuscular Hemoglobin 33.4 pg (28.0-32.0); Mean Corpuscular Hgb Conc. 31.9 g/dL (32.0-36.0); Monocytes % (auto) 0.5 % (0.0-12.0); Neutrophils # (auto) 2.5 10 ^3/uL (1.6-8.6); Neutrophils % (auto) 82.1 % (37.0-80.0); Nucleated Red Blood Cells % 0.1 %
[2024-05-01 06:44] LABS: Calcium 8.8 mg/dL (8.7-10.4); Chloride 110 mmol/L (98-107); Sodium 140 mmol/L (136-145)
[2024-05-01 06:45] LABS: Anion Gap 12 (5-15); Carbon Dioxide 18 mmol/L (20-30)
[2024-05-01 06:50] LABS: Glucose 95 mg/dL (74-106)
[2024-05-01 06:51] LABS: BUN/Creatinine Ratio 21.4 (10.0-20.0); Blood Urea Nitrogen 24 mg/dL (9-23)
[2024-05-01] MEDS: METOPROLOL SUCCINATE XL 50 MG TAB PO SCH (09:09)
[2024-05-01] MEDS: MORPHINE SULFATE INJ 2 MG/ml SYRG IV PRN (09:10)
[2024-05-01] MEDS: Ensure HIGH Protein Vanilla 8oz Bottle PO SCH (12:00)
[2024-05-01] MEDS: POTASSIUM CHL 20 Meq TABLET PO ONE (12:05)
[2024-05-01] MEDS: ONDANSETRON HCL 4 MG/2 ML VIAL IV PRN (12:06)
[2024-05-01] MEDS: MAGNESIUM SULFATE 1GM/100ML 100 ML IV SCH (12:06)
[2024-05-01] MEDS: LISINOPRIL 5 MG TAB PO ONE (12:06)
[2024-05-01] MEDS: GABAPENTIN 100 MG CAP PO SCH (13:46)
[2024-05-01] MEDS: PANTOPRAZOLE 40 MG TAB PO SCH (16:58)
[2024-05-01] MEDS: Glucerna Carbsteady SHAKE Stawberry 8oz PO SCH (18:05)
[2024-05-01 19:43] LABS: Potassium 3.5 mmol/L (3.5-5.1)
[2024-05-01 19:50] LABS: Magnesium 2.3 mg/dL (1.6-2.6)
[2024-05-01] MEDS: MAGNESIUM OXIDE 400 MG TAB PO SCH (21:29)
[2024-05-02 01:00] VITALS: BP 122/68; PULSE 77; RESP 18; TEMP 98.1; O2SAT 99
[2024-05-02 05:00] VITALS: BP 145/65; PULSE 70; RESP 18; TEMP 97.7; O2SAT 100
[2024-05-02 07:03] LABS: Basophils # (auto) 0 10 ^3/uL (0-0.2); Lymphocytes # (auto) 0.6 10 ^3/uL (0.4-5.4); Monocytes # (auto) 0 10 ^3/uL (0-1.3); Neutrophils # (auto) 1.8 10 ^3/uL (1.6-8.6); White Blood Cell 2.5 10^3/uL (4.4-10.8)
[2024-05-02 07:07] LABS: Basophils % (auto) 0.3 % (0.0-2.0); Eosinophils # (auto) 0.1 10 ^3/uL (0-0.8); Hematocrit 24.6 % (36.0-46.0); Lymphocytes % (auto) 25.6 % (10.0-50.0); Mean Corpuscular Hgb Conc. 32.8 g/dL (32.0-36.0); Mean Corpuscular Volume 103.7 fL (80.0-100.0); Monocytes % (auto) 0.3 % (0.0-12.0); Neutrophils % (auto) 71.8 % (37.0-80.0); Nucleated Red Blood Cells % 0.1 %; Red Blood Cells 2.37 10^6/uL (4.0-5.20)
[2024-05-02 07:09] LABS: Chloride 112 mmol/L (98-107); Potassium 3.6 mmol/L (3.5-5.1)
[2024-05-02 07:10] LABS: Anion Gap 11 (5-15); Calcium 8.7 mg/dL (8.5-10.1); Carbon Dioxide 16 mmol/L (20-30); Sodium 139 mmol/L (136-145)
[2024-05-02 07:15] LABS: Glucose 82 mg/dL (74-106)
[2024-05-02 07:16] LABS: BUN/Creatinine Ratio 23.5 (10.0-20.0); Blood Urea Nitrogen 23 mg/dL (9-23); Magnesium 2.2 mg/dL (1.6-2.6)
[2024-05-02 08:00] VITALS: PULSE 79
[2024-05-02 13:00] VITALS: BP 157/80; PULSE 81; RESP 16; TEMP 98.3; O2SAT 99
[2024-05-02] MEDS ORDERED: SUCR1SUS26 PO (14:52)
[2024-05-02] MEDS ORDERED: PANT40T PO (14:52)
[2024-05-02 15:19] VITALS: BP 149/80; PULSE 93; RESP 16
[2024-05-02] MEDS: MAALOX PLUS or MAALOX 30 ML PO ONE (17:12)
[2024-05-02] MEDS: FILGRASTIM(TBO) 480 MCG/0.8 ML SYRG SC ONE (17:19)
== END 2024-05-02 18:03 | disposition home health service (06) | DRG 808 ==
LOC: EDUNIT# 17:28 → EDBD 17:28 → ER 17:28 → TELE 04-30 04:10 → TELE-EAST 04-30 14:50
PROVIDERS: ADMIT Nurse Practitioner Family; ATTEND Internal Medicine
DX: D61.810 Antineoplastic chemotherapy induced pancytopenia (principal); J96.01 Acute respiratory failure with hypoxia; J98.11 Atelectasis; E87.20 Acidosis, unspecified; C22.8 Malignant neoplasm of liver, primary, unspecified as to type; I16.0 Hypertensive urgency; Z20.822 Contact with and (suspected) exposure to COVID-19; T45.1X5A Adverse effect of antineoplastic and immunosuppressive drugs, initial encounter; E87.6 Hypokalemia; I10 Essential (primary) hypertension; K74.60 Unspecified cirrhosis of liver; J40 Bronchitis, not specified as acute or chronic; E86.0 Dehydration; Z79.899 Other long term (current) drug therapy; Y92.89 Other specified places as the place of occurrence of the external cause
CPT/HCPCS: 36415; 71045; 71275; 80048; 80053; 80202; 81001; 82553; 83605; 83735; 83880; 84132; 84443; 84484; 85007; 85025; 85027; 85610; 85730; 86850; 86900; 86901; 87040; 87086; 87426; 87804; 93005; 93306; 96361; 96365; 96367; 96375; 99291; C9113; G0378; J0692; J1447; J2405

== ENCOUNTER 2024-05-06 11:23 | Inpatient (IN) | payer BC ==
[~2024-05-06] VITALS: Ht 154.9 cm; Wt 70.9 kg
[~2024-05-06 11:23] MED LIST changes: +PANT40T PO; +SUCR1SUS26 PO
[2024-05-06] MEDS: SODIUM CHLORIDE 0.9% 1,000 ML IV ONE ×2 (11:54→12:15)
[2024-05-06 12:05] LABS: Mean Corpuscular Hemoglobin 34.1 pg (28.0-32.0)
[2024-05-06 12:09] LABS: Hematocrit 27.3 % (36.0-46.0); Mean Corpuscular Volume 103.3 fL (80.0-100.0); Red Blood Cells 2.64 10^6/uL (4.0-5.20)
[2024-05-06 12:13] LABS: Potassium 3.6 mmol/L (3.5-5.1)
[2024-05-06 12:14] LABS: Anion Gap 21.00001 (5-15)
[2024-05-06 12:19] LABS: Blood Urea Nitrogen 65 mg/dL (9-23); Glucose 87 mg/dL (74-106)
[2024-05-06 12:20] LABS: Chloride 96 mmol/L (98-107); Sodium 127 mmol/L (136-145)
[2024-05-06 12:23] LABS: Carbon Dioxide < 10 mmol/L (20-30)
[2024-05-06 12:42] LABS: Red Cell Distribution Width 20.1 % (11.8-14.3)
[2024-05-06 12:50] LABS: Anisocytosis Slight; Band Neutrophils % (manual) 14; Basophils % (manual) 0 (0.0-2.0); Blast Cells 0; Eosinophils % (manual) 0 (0-7); Macrocytosis Slight; Metamyelocytes % 0; Monocytes % (manual) 6 (0-12); Myelocytes % 1; Platelet Estimate Decreased; Promyelocytes % 0; White Blood Cell 1.6 10^3/uL (4.4-10.8)
[2024-05-06 12:51] LABS: Lymphocytes % (manual) 66 (10.0-50.0); Reactive Lymphocytes 1
[2024-05-06 13:26] VITALS: PULSE 103; RESP 19; O2SAT 98
[2024-05-06] MEDS: ceFAZolin 1GM/50ML 50 ML IV ONE (13:45)
[2024-05-06] MEDS ORDERED: VANCOMYCIN 1GM/200ML 200 ML IV ONE (13:45)
[2024-05-06] MEDS ORDERED: NITROGLYCERIN 0.4 MG SL TAB SL PRN (14:00)
[2024-05-06] MEDS: SODIUM CHLORIDE 0.9% 1,000 ML IV SCH ×2 (14:00→15:30)
[2024-05-06] MEDS ORDERED: MORPHINE SULFATE INJ 2 MG/ml SYRG IV PRN (14:00)
[2024-05-06 14:03] LABS: Urine Bacteria None Seen /hpf (None Seen)
[2024-05-06 14:22] LABS: Urine Blood 1+ /uL (Negative); Urine Budding Yeast MODERATE /hpf (None Seen); Urine Clarity Turbid (Clear); Urine Color Dark-Yellow (Yellow); Urine Protein, UAD 2+ (Negative); Urine Specific Gravity 1.023 (1.001-1.035); Urine Urobilinogen Normal (Negative); Urine WBC 13 /hpf (0 - 5); Urine pH 5.5 (5.0-9.0)
[2024-05-06 14:25] VITALS: PULSE 100; RESP 22; O2SAT 98
[2024-05-06] MEDS: MORPHINE SULFATE INJ 2 MG/ml SYRG IV PRN (14:56)
[2024-05-06] MEDS: SODIUM BICARB 8.4% 50Meq/50ml SYR Vial IV ONE (16:16)
[2024-05-06] MEDS: CEFEPIME 1GM/ 50ML 50 ML IV SCH (17:50)
[2024-05-06 19:06] LABS: Chloride 99 mmol/L (98-107); Potassium 2.9 mmol/L (3.5-5.1)
[2024-05-06 19:07] LABS: Anion Gap 18 (5-15); Calcium 7.7 mg/dL (8.7-10.4); Carbon Dioxide 16 mmol/L (20-30)
[2024-05-06 19:12] LABS: BUN/Creatinine Ratio 10.6 (10.0-20.0); Blood Urea Nitrogen 59 mg/dL (9-23); Glucose 80 mg/dL (74-106)
[2024-05-06 19:14] LABS: Sodium 133 mmol/L (136-145)
[2024-05-06 20:00] VITALS: PULSE 121; RESP 21; O2SAT 96
[2024-05-06] MEDS: SODIUM CHL 0.9% IV SCH (20:14)
[2024-05-06] MEDS: DAPTOMYCIN IV SCH (20:14)
[2024-05-06 21:00] VITALS: BP 116/60; PULSE 113; RESP 17; TEMP 99.6; O2SAT 96
[2024-05-06 22:01] VITALS: PULSE 113; RESP 17
[2024-05-06 22:05] VITALS: BP 116/60; PULSE 113; RESP 17; TEMP 99.6; O2SAT 96
[2024-05-06] MEDS: POTASSIUM CHL 20MEQ/100ML 100 ML IV ONE (22:07)
[2024-05-06] MEDS: HYDROcodone-ACET 5/325MG TAB PO PRN (23:01)
[2024-05-07] VITALS (9 sets, daily range): BP systolic 103–135; BP diastolic 51–63; PULSE 104–119; RESP 16–20; TEMP 97.3–99.6; O2SAT 94–97
[2024-05-07 05:59] LABS: Alanine Aminotransferase 15 U/L (7-40); Alkaline Phosphatase 137 U/L (46-116); Anion Gap 18 (5-15); Aspartate Aminotransferase 63 U/L (13-40); Blood Urea Nitrogen 65 mg/dL (9-23); Calcium 7.7 mg/dL (8.7-10.4); Carbon Dioxide 13 mmol/L (20-30); Chloride 100 mmol/L (98-107); Glucose 71 mg/dL (74-106); Potassium 3.1 mmol/L (3.5-5.1); Sodium 131 mmol/L (136-145)
[2024-05-07 06:00] LABS: Albumin 2.8 g/dL (3.2-4.8)
[2024-05-07 06:01] LABS: Bilirubin, Total 0.4 mg/dL (0.2-1.0); Total Protein 4.6 g/dL (5.7-8.2)
[2024-05-07] MEDS: MULTIPLE VITAMIN TAB PO SCH (08:18)
[2024-05-07] MEDS: SODIUM CHLORIDE 0.9% 1,000 ML IV SCH (08:30)
[2024-05-07 08:54] LABS: Hematocrit 25.5 % (36.0-46.0); Hemoglobin 7.9 g/dL (12.2-16.2); Mean Corpuscular Hemoglobin 33.4 pg (28.0-32.0); Mean Corpuscular Hgb Conc. 30.9 g/dL (32.0-36.0); Mean Corpuscular Volume 108.1 fL (80.0-100.0); Red Blood Cells 2.36 10^6/uL (4.0-5.20); White Blood Cell 3.6 10^3/uL (4.4-10.8)
[2024-05-07 09:25] LABS: Red Cell Distribution Width 20.7 % (11.8-14.3)
[2024-05-07 09:29] LABS: Basophils % (manual) 0 (0.0-2.0); Eosinophils % (manual) 0 (0-7); Myelocytes % 0; Promyelocytes % 0; Reactive Lymphocytes 0
[2024-05-07] MEDS: SODIUM BICARB 8.4% 50Meq/50ml SYR Vial IV ONE (11:54)
[2024-05-07 12:10] LABS: Band Neutrophils % (manual) 7; Blast Cells 2; Lymphocytes % (manual) 32 (10.0-50.0); Metamyelocytes % 2; Monocytes % (manual) 7 (0-12); Platelet Estimate Markedly Decreased
[2024-05-07] MEDS: POTASSIUM CHL 20 Meq TABLET PO ONE (14:55)
[2024-05-07] MEDS ORDERED: LISI20TA56 PO (16:29)
[2024-05-07] MEDS ORDERED: ALBU108A5 INH (16:53)
[2024-05-07] MEDS ORDERED: COROSUS OT (16:53)
[2024-05-07] MEDS ORDERED: TRAM50TA2 PO (16:53)
[2024-05-07] MEDS ORDERED: HYDR-4902 PO (16:53)
[2024-05-07] MEDS ORDERED: ZOFR4T SL (16:53)
[2024-05-07] MEDS ORDERED: PREG50CA PO (16:53)
[2024-05-07] MEDS ORDERED: AMLO1TAB22 PO (16:53)
[2024-05-07] MEDS ORDERED: PRED10TA PO (16:53)
[2024-05-08] VITALS (11 sets, daily range): BP systolic 91–126; BP diastolic 46–60; PULSE 94–119; RESP 16–20; TEMP 97–97.8; O2SAT 95–100
[2024-05-08] MEDS: ACETAMINOPHEN 325 MG TAB PO PRN (00:06)
[2024-05-08 08:38] LABS: Chloride 104 mmol/L (98-107); Sodium 134 mmol/L (136-145)
[2024-05-08 08:41] LABS: Anion Gap 19 (5-15); Calcium 8.2 mg/dL (8.5-10.1); Carbon Dioxide 11 mmol/L (20-30)
[2024-05-08 08:46] LABS: Glucose 76 mg/dL (74-106)
[2024-05-08 08:51] LABS: BUN/Creatinine Ratio 18.8 (10.0-20.0); Potassium 3.1 mmol/L (3.5-5.1)
[2024-05-08 08:57] LABS: Blood Urea Nitrogen 80 mg/dL (9-23)
[2024-05-08] MEDS: ONDANSETRON HCL 4 MG/2 ML VIAL IV PRN (11:04)
[2024-05-08] MEDS: MIDODRINE HCL 10 MG TAB PO SCH (12:00)
[2024-05-08 13:08] LABS: Magnesium 1.9 mg/dL (1.6-2.6)
[2024-05-08 13:10] LABS: Phosphorus 6.3 mg/dL (2.4-5.1)
[2024-05-08] MEDS: POTASSIUM CHL 20MEQ/100ML 100 ML IV SCH (14:02)
[2024-05-08] MEDS: POTASSIUM EFFERVESENT TAB 25 MEQ PO ONE (14:04)
[2024-05-08] MEDS: OCTREOTIDE ACETATE 100 MCG/ML VL SUBCUT SCH (14:13)
[2024-05-08] MEDS: SODIUM BICARB 50mEq/50ml Vial 100 ML in SOD CHL 0.45% 1,000 ML IV SCH (14:17)
[2024-05-08 17:17] LABS: Hematocrit 25.8 % (36.0-46.0); Hemoglobin 8.2 g/dL (12.2-16.2); Mean Corpuscular Hemoglobin 33.2 pg (28.0-32.0); Mean Corpuscular Hgb Conc. 31.7 g/dL (32.0-36.0); Mean Corpuscular Volume 104.5 fL (80.0-100.0); Red Blood Cells 2.47 10^6/uL (4.0-5.20); White Blood Cell 11.2 10^3/uL (4.4-10.8)
[2024-05-08 17:18] LABS: Basophils % (manual) 0 (0.0-2.0); Eosinophils % (manual) 0 (0-7); Promyelocytes % 0; Reactive Lymphocytes 0; Red Cell Distribution Width 20.3 % (11.8-14.3)
[2024-05-08 17:49] LABS: Band Neutrophils % (manual) 18; Lymphocytes % (manual) 6 (10.0-50.0); Monocytes % (manual) 6 (0-12)
[2024-05-08 17:50] LABS: Anisocytosis Slight; Blast Cells 1; Macrocytosis Slight; Metamyelocytes % 2; Myelocytes % 2; Platelet Estimate Decreased
[2024-05-08] MEDS: Glucerna Carbsteady SHAKE Vanilla 8oz PO SCH (18:06)
[2024-05-09] VITALS (10 sets, daily range): BP systolic 101–134; BP diastolic 52–66; PULSE 70–176; RESP 16–21; TEMP 97.3–98.6; O2SAT 95–100
[2024-05-09 17:45] LABS: Chloride 106 mmol/L (98-107); Potassium 3.7 mmol/L (3.5-5.1); Sodium 134 mmol/L (136-145)
[2024-05-09 17:46] LABS: Anion Gap 17 (5-15); Carbon Dioxide 11 mmol/L (20-30)
[2024-05-09 17:51] LABS: BUN/Creatinine Ratio 15.5 (10.0-20.0); Glucose 57 mg/dL (74-106)
[2024-05-09 17:56] LABS: Blood Urea Nitrogen 59 mg/dL (9-23)
[2024-05-09 22:46] LABS: Sodium Urine < 10 mmol/L (40-220)
[2024-05-09 22:50] LABS: Protein, Urine 165.7 mg/dL (0.0-11.9)
[2024-05-09 22:53] LABS: Creatinine, Urine 168.37 mg/dL (30.0-125.0); Urine Protein/Creatinine Ratio 0.98
[2024-05-10] VITALS (8 sets, daily range): BP systolic 94–120; BP diastolic 48–66; PULSE 80–109; RESP 15–17; TEMP 97.6–98.9; O2SAT 94–100
[2024-05-10 06:15] LABS: Hemoglobin 7.4 g/dL (12.2-16.2)
[2024-05-10 06:18] LABS: Hematocrit 22.4 % (36.0-46.0); Mean Corpuscular Hemoglobin 33.1 pg (28.0-32.0); Mean Corpuscular Volume 100.3 fL (80.0-100.0); Red Blood Cells 2.23 10^6/uL (4.0-5.20); Red Cell Distribution Width 19.6 % (11.8-14.3); White Blood Cell 21.5 10^3/uL (4.4-10.8)
[2024-05-10 06:33] LABS: Basophils % (manual) 0 (0.0-2.0); Promyelocytes % 0; Reactive Lymphocytes 0
[2024-05-10 06:35] LABS: Albumin 2.9 g/dL (3.2-4.8); Alkaline Phosphatase 192 U/L (46-116); Anion Gap 14 (5-15); BUN/Creatinine Ratio 16.9 (10.0-20.0); Blood Urea Nitrogen 65 mg/dL (9-23); Calcium 9.2 mg/dL (8.7-10.4); Carbon Dioxide 17 mmol/L (20-30); Chloride 102 mmol/L (98-107); Glucose 69 mg/dL (74-106); Potassium 3.3 mmol/L (3.5-5.1); Sodium 133 mmol/L (136-145)
[2024-05-10 06:36] LABS: Aspartate Aminotransferase 40 U/L (13-40); Bilirubin, Total 0.3 mg/dL (0.2-1.0)
[2024-05-10 06:45] LABS: Alanine Aminotransferase < 9 U/L (7-40)
[2024-05-10 08:15] LABS: Band Neutrophils % (manual) 7; Blast Cells 1; Eosinophils % (manual) 1 (0-7); Lymphocytes % (manual) 19 (10.0-50.0); Metamyelocytes % 1; Monocytes % (manual) 5 (0-12); Myelocytes % 1
[2024-05-10 08:16] LABS: Platelet Estimate Decreased
[2024-05-11] VITALS (8 sets, daily range): BP systolic 111–147; BP diastolic 55–66; PULSE 64–103; RESP 16–19; TEMP 97.4–98.2; O2SAT 95–100
[2024-05-11 09:55] LABS: Hemoglobin 7.2 g/dL (12.2-16.2); White Blood Cell 20.3 10^3/uL (4.4-10.8)
[2024-05-11 10:00] LABS: Hematocrit 21.6 % (36.0-46.0); Mean Corpuscular Hemoglobin 33.1 pg (28.0-32.0); Mean Corpuscular Hgb Conc. 33.3 g/dL (32.0-36.0); Mean Corpuscular Volume 99.6 fL (80.0-100.0); Red Blood Cells 2.17 10^6/uL (4.0-5.20)
[2024-05-11 10:07] LABS: Red Cell Distribution Width 20.3 % (11.8-14.3)
[2024-05-11 10:08] LABS: Basophils % (manual) 0 (0.0-2.0); Blast Cells 0; Eosinophils % (manual) 0 (0-7); Promyelocytes % 0; Reactive Lymphocytes 0
[2024-05-11 10:17] LABS: Albumin 2.8 g/dL (3.2-4.8); Alkaline Phosphatase 215 U/L (46-116); Anion Gap 11 (5-15); Aspartate Aminotransferase 43 U/L (13-40); BUN/Creatinine Ratio 20.1 (10.0-20.0); Blood Urea Nitrogen 65 mg/dL (9-23); Calcium 8.5 mg/dL (8.5-10.1); Carbon Dioxide 24 mmol/L (20-30); Chloride 101 mmol/L (98-107); Glucose 73 mg/dL (74-106); Potassium 2.6 mmol/L (3.5-5.1); Sodium 136 mmol/L (136-145)
[2024-05-11 10:18] LABS: Alanine Aminotransferase < 9 U/L (7-40); Bilirubin, Total 0.4 mg/dL (0.2-1.0); Total Protein 4.7 g/dL (5.7-8.2)
[2024-05-11 10:31] LABS: Band Neutrophils % (manual) 9; Lymphocytes % (manual) 7 (10.0-50.0); Metamyelocytes % 3; Monocytes % (manual) 9 (0-12); Myelocytes % 3
[2024-05-11 10:32] LABS: Anisocytosis Slight; Platelet Estimate Decreased
[2024-05-11] MEDS: POTASSIUM CHLORIDE 80 MEQ, LIDOCAINE 1% (LOCAL ANESTH.) 6 ML in SODIUM CHL 0.9% 500 ML IV ONE (14:33)
[2024-05-11] MEDS ORDERED: CLINIMIX PER PHARMACY 0 ML IV SCH (15:00)
[2024-05-11] MEDS: metroNIDAZOLE 500MG/100ML 100 ML IV SCH (16:13)
[2024-05-11] MEDS: InsuLIN REG 1unit/0.01ml Soln (100units/ml) SC SCH (18:00)
[2024-05-11] MEDS ORDERED: DEXTROSE (50%) 50ML SYRG IV SCH (18:00)
[2024-05-11] MEDS: ACCU-CHEK COMFORT CURVE STRIP VI SCH (18:00)
[2024-05-11] MEDS: AMINO ACID INFUSION IN D10W 1,000 ML IV SCH (20:32)
[2024-05-12] VITALS (9 sets, daily range): BP systolic 108–157; BP diastolic 49–79; PULSE 56–92; RESP 16–20; TEMP 97.2–98; O2SAT 98–100
[2024-05-12 15:03] LABS: Hepatitis C Antibody Negative (Negative)
[2024-05-12 17:04] LABS: Albumin 2.7 g/dL (3.2-4.8); Alkaline Phosphatase 252 U/L (46-116); Anion Gap 10 (5-15); Aspartate Aminotransferase 49 U/L (13-40); BUN/Creatinine Ratio 19.7 (10.0-20.0); Calcium 8.6 mg/dL (8.5-10.1); Carbon Dioxide 23 mmol/L (20-30); Chloride 108 mmol/L (98-107); Glucose 92 mg/dL (74-106); Magnesium 1.7 mg/dL (1.6-2.6); Potassium 3.3 mmol/L (3.5-5.1); Sodium 141 mmol/L (136-145)
[2024-05-12 17:05] LABS: Bilirubin, Total 0.4 mg/dL (0.2-1.0); Phosphorus 2.8 mg/dL (2.4-5.1); Total Protein 4.8 g/dL (5.7-8.2)
[2024-05-12 17:06] LABS: Alanine Aminotransferase < 9 U/L (7-40); Blood Urea Nitrogen 39 mg/dL (9-23)
[2024-05-12 21:52] LABS: Hemoglobin 7.8 g/dL (12.2-16.2)
[2024-05-12 21:54] LABS: Hematocrit 23.8 % (36.0-46.0); Mean Corpuscular Hemoglobin 33.2 pg (28.0-32.0); Mean Corpuscular Hgb Conc. 32.7 g/dL (32.0-36.0); Mean Corpuscular Volume 101.6 fL (80.0-100.0); Red Blood Cells 2.34 10^6/uL (4.0-5.20); White Blood Cell 18.3 10^3/uL (4.4-10.8)
[2024-05-12 21:56] LABS: Red Cell Distribution Width 20.5 % (11.8-14.3)
[2024-05-12 21:58] LABS: Basophils % (manual) 0 (0.0-2.0); Blast Cells 0; Eosinophils % (manual) 0 (0-7); Promyelocytes % 0; Reactive Lymphocytes 0
[2024-05-12 22:13] LABS: Band Neutrophils % (manual) 19; Lymphocytes % (manual) 5 (10.0-50.0); Metamyelocytes % 6; Monocytes % (manual) 10 (0-12); Myelocytes % 1; Platelet Estimate Decreased
[2024-05-12 22:14] LABS: Anisocytosis Slight; Large Platelets FEW; Macrocytosis Slight
[2024-05-13] VITALS (8 sets, daily range): BP systolic 128–152; BP diastolic 65–81; PULSE 85–117; RESP 16–20; TEMP 97.2–98.7; O2SAT 93–100
[2024-05-13 03:43] LABS: Hepatitis B Surface Antigen Negative (Negative)
[2024-05-13 10:53] LABS: Albumin 2.8 g/dL (3.2-4.8); Alkaline Phosphatase 259 U/L (46-116); Anion Gap 7 (5-15); Aspartate Aminotransferase 46 U/L (13-40); BUN/Creatinine Ratio 26.7 (10.0-20.0); Blood Urea Nitrogen 43 mg/dL (9-23); Calcium 8.8 mg/dL (8.5-10.1); Carbon Dioxide 28 mmol/L (20-30); Chloride 109 mmol/L (98-107); Glucose 92 mg/dL (74-106); Magnesium 1.2 mg/dL (1.6-2.6); Potassium 3.2 mmol/L (3.5-5.1); Sodium 144 mmol/L (136-145)
[2024-05-13 10:54] LABS: Bilirubin, Total 0.5 mg/dL (0.2-1.0); Phosphorus 3.1 mg/dL (2.4-5.1)
[2024-05-13 11:10] LABS: Alanine Aminotransferase < 9 U/L (7-40)
[2024-05-13] MEDS ORDERED: MAGNESIUM SULFATE 1GM/100ML 100 ML IV SCH (13:00)
[2024-05-13] MEDS: POTASSIUM CHLORIDE 20 MEQ, LIDOCAINE 1% (LOCAL ANESTH.) 2 ML in SODIUM CHL 0.9% 100 ML IV ONE (18:48)
[2024-05-14] VITALS (9 sets, daily range): BP systolic 152–177; BP diastolic 77–95; PULSE 77–108; RESP 17–18; TEMP 97.2–98.8; O2SAT 96–100
[2024-05-14] MEDS: MAGNESIUM SULFATE 1GM/100ML 100 ML IV SCH ×2 (02:00→21:43)
[2024-05-14 15:01] LABS: Alanine Aminotransferase 10 U/L (7-40); Albumin 2.7 g/dL (3.2-4.8); Alkaline Phosphatase 246 U/L (46-116); Anion Gap 4 (5-15); Aspartate Aminotransferase 41 U/L (13-40); Bilirubin, Total 0.5 mg/dL (0.2-1.0); Calcium 8.7 mg/dL (8.5-10.1); Carbon Dioxide 27 mmol/L (20-30); Chloride 108 mmol/L (98-107); Glucose 121 mg/dL (74-106); Magnesium 1.1 mg/dL (1.6-2.6); Phosphorus 1.5 mg/dL (2.4-5.1); Potassium 3.1 mmol/L (3.5-5.1); Sodium 139 mmol/L (136-145); Total Protein 5.2 g/dL (5.7-8.2)
[2024-05-14 15:02] LABS: Blood Urea Nitrogen 27 mg/dL (9-23)
[2024-05-14] MEDS: POTASSIUM PHOSPHATE 22 MEQ in SODIUM CHL 0.9% 100 ML IV ONE (17:58)
[2024-05-15] VITALS (7 sets, daily range): BP systolic 154–169; BP diastolic 80–94; PULSE 79–115; RESP 16–18; TEMP 37.1; O2SAT 97–100
[2024-05-15 06:17] LABS: Potassium 2.8 mmol/L (3.5-5.1)
[2024-05-15 06:18] LABS: Calcium 8.7 mg/dL (8.5-10.1)
[2024-05-15 06:23] LABS: BUN/Creatinine Ratio 18.8 (10.0-20.0)
[2024-05-15 06:24] LABS: Albumin 2.5 g/dL (3.2-4.8); Magnesium 1.3 mg/dL (1.6-2.6)
[2024-05-15 06:25] LABS: Phosphorus 1.7 mg/dL (2.4-5.1)
[2024-05-15] MEDS: POTASSIUM CHLORIDE 40 MEQ, LIDOCAINE 1% (LOCAL ANESTH.) 4 ML in SODIUM CHL 0.9% 250 ML IV ONE (16:41)
[2024-05-15] MEDS: MAGNESIUM SULFATE 1GM/100ML 100 ML IV SCH (16:41)
[2024-05-15] MEDS ORDERED: POTASSIUM PHOSPHATE 22 MEQ in SODIUM CHL 0.9% 100 ML IV SCH (19:30)
[2024-05-15] MEDS ORDERED: CEFEPIME 1GM/ 50ML 50 ML IV SCH (22:00)
== END 2024-05-15 18:10 | disposition hospice, inpatient (51) | DRG 682 ==
LOC: EDBD 11:23 → ER 11:23 → TELE 14:10 → TELE-CENTR 21:32
PROVIDERS: ADMIT Internal Medicine; ATTEND Internal Medicine
PROC: 05HC33Z Insertion of Infusion Device into Left Basilic Vein, Percutaneous Approach (ICD-10-PCS; principal; 2024-05-13)
PROC: B54NZZA Ultrasonography of Left Upper Extremity Veins, Guidance (ICD-10-PCS; 2024-05-13)
DX: N17.0 Acute kidney failure with tubular necrosis (principal); G93.41 Metabolic encephalopathy; D61.818 Other pancytopenia; E87.1 Hypo-osmolality and hyponatremia; C22.1 Intrahepatic bile duct carcinoma; R62.7 Adult failure to thrive; K52.9 Noninfective gastroenteritis and colitis, unspecified; Z66 Do not resuscitate; E86.0 Dehydration; K76.82 Hepatic encephalopathy; E87.6 Hypokalemia; M06.9 Rheumatoid arthritis, unspecified; K76.0 Fatty (change of) liver, not elsewhere classified; I10 Essential (primary) hypertension; I48.91 Unspecified atrial fibrillation; K74.60 Unspecified cirrhosis of liver; Z85.05 Personal history of malignant neoplasm of liver; Z68.29 Body mass index [BMI] 29.0-29.9, adult; Z92.21 Personal history of antineoplastic chemotherapy; Z88.7 Allergy status to serum and vaccine; Z88.8 Allergy status to other drugs, medicaments and biological substances; Z79.899 Other long term (current) drug therapy; Z82.49 Family history of ischemic heart disease and other diseases of the circulatory system; Z90.710 Acquired absence of both cervix and uterus
CPT/HCPCS: 36415; 36600; 70450; 71045; 74176; 76775; 80048; 80053; 80069; 81001; 82140; 82306; 82550; 82570; 82805; 82962; 83605; 83735; 84100; 84156; 84300; 85007; 85027; 86703; 86803; 87040; 87045; 87081; 87340; 87427; 87493; 93005; 96361; 96365; 96366; 96367; 96375; 97110; 97116; 97163; 97530; G0378; J1815; J2001; J2405; J3480; J3490